=== PATIENT | female | born 1940 | race Caucasian/White ===

== ENCOUNTER 2022-05-15 07:24 | Day surgery (SDC) | payer MEDICARE, MEDICAID ==
[~2022-05-15] VITALS: Ht 156.2 cm; Wt 79.4 kg
[~2022-05-15 07:24] MED LIST: AMLO1TAB24 PO; CLOP75TA2 PO; FURO20TA2 PO; HYDR-3911 PO; METO50TA7 PO; NS 1,000 ML IV ONE; PANT20TA6 PO; ROSU10TA6 PO
[2022-05-15] MEDS ORDERED: LISI20TA33 PO (07:53)
[2022-05-15] MEDS ORDERED: ECOT81TA5 PO (07:53)
[2022-05-15] MEDS ORDERED: SIMV20TA22 PO (07:53)
[2022-05-15] MEDS ORDERED: FLOM0.4C39 PO (07:53)
[2022-05-15] MEDS ORDERED: propofoL 200 MG/20 ML VIAL As Ordered ONE (08:37)
[2022-05-15 09:40] VITALS: BP 145/65
== END 2022-05-15 09:41 | disposition home or self-care (01) ==
LOC: M OPP 07:24
PROVIDERS: ATTEND Surgery
DX: D12.0 Benign neoplasm of cecum (principal); K64.0 First degree hemorrhoids; K57.30 Diverticulosis of large intestine without perforation or abscess without bleeding; R63.4 Abnormal weight loss; Z86.010 Personal history of colon polyps; K29.70 Gastritis, unspecified, without bleeding; I10 Essential (primary) hypertension; E78.00 Pure hypercholesterolemia, unspecified; N18.30 Chronic kidney disease, stage 3 unspecified; Z79.02 Long term (current) use of antithrombotics/antiplatelets; Z79.82 Long term (current) use of aspirin; Z79.899 Other long term (current) drug therapy; Z95.5 Presence of coronary angioplasty implant and graft; Z86.73 Personal history of transient ischemic attack (TIA), and cerebral infarction without residual deficits; F17.200 Nicotine dependence, unspecified, uncomplicated

== ENCOUNTER → 2022-07-11 | Outpatient (CLI) | payer MEDICARE, MEDICAID ==
[~2022-07-11] MED LIST changes: +ECOT81TA5 PO; +FLOM0.4C39 PO; +LISI20TA33 PO; -NS 1,000 ML IV ONE; +SIMV20TA22 PO
== END ==
LOC: M RAD 10:53
PROVIDERS: ATTEND Podiatrist Foot & Ankle Surgery
DX: I70.203 Unspecified atherosclerosis of native arteries of extremities, bilateral legs (principal)

== ENCOUNTER → 2022-07-23 | Outpatient (POV) | payer MEDICARE, MEDICAID ==
[~2022-07-23] VITALS: Ht 154.9 cm; Wt 84.0 kg
[2022-07-23 09:30] VITALS: BP 189/79; O2SAT 98
== END ==
LOC: M IRPOV 09:15
PROVIDERS: ATTEND Radiology Diagnostic Radiology
DX: M79.661 Pain in right lower leg (principal); M79.662 Pain in left lower leg; I25.10 Atherosclerotic heart disease of native coronary artery without angina pectoris; I10 Essential (primary) hypertension; E78.5 Hyperlipidemia, unspecified; Z95.5 Presence of coronary angioplasty implant and graft; Z79.82 Long term (current) use of aspirin; Z87.891 Personal history of nicotine dependence

== ENCOUNTER 2022-07-31 12:24 | Observation (INO) | payer MEDICARE, MEDICAID ==
[~2022-07-31] VITALS: Ht 154.9 cm; Wt 79.6 kg
[2022-07-31] MEDS ORDERED: NS 1,000 ML IV SCH (13:05)
[2022-07-31 13:57] LABS: BASO # 0.1 10^3/uL (0.0-0.2); BASO % 0.4 % (0.0-1.0); EOS % 0.3 % (0.0-3.0); HEMATOCRIT 46.2 % (36.0-47.0); HEMOGLOBIN 15.7 g/dl (12.0-15.5); LYMPH # 2.1 10^3/uL (1.5-5.0); LYMPH % 15.9 % (24.0-44.0); MEAN CORPUSCULAR HEMOGLOBIN 31.9 pg (27.0-33.0); MEAN CORPUSCULAR VOLUME 93.9 fl (80.0-96.0); MONO % 7.3 % (2.0-8.0); NEUTROPHILS # 9.8 10^3/uL (1.5-8.5); NEUTROPHILS % 75.7 % (36.0-66.0); PLATELET COUNT, AUTOMATED 216 10^3/uL (150-450); RED BLOOD COUNT 4.92 10^6/uL (4.00-5.40)
[2022-07-31 14:24] LABS: ALBUMIN 3.2 G/DL (3.2-5.2); ALKALINE PHOSPHATASE 124 U/L (46-116); ALT/SGPT 11 U/L (7.0-40); AST/SGOT 32 U/L (<34); BILIRUBIN,DIRECT < 0.1 MG/DL (<0.4); BILIRUBIN,TOTAL 0.3 MG/DL (0.3-1.2); BLOOD UREA NITROGEN 36 MG/DL (9-23); CALCIUM LEVEL 8.8 MG/DL (8.3-10.6); CARBON DIOXIDE LEVEL 15 MMOL/L (20-31); CHLORIDE LEVEL 107 MMOL/L (98-107); CREATININE FOR GFR 2.17 MG/DL (0.55-1.30); GLOMERULAR FILTRATION RATE 23.1 (>32); GLUCOSE, FASTING 97 MG/DL (74-106); LIPASE 23 U/L (12-53); POTASSIUM SERUM 4.1 MMOL/L (3.5-5.1); SODIUM LEVEL 134 MMOL/L (136-145); TOTAL PROTEIN 6.5 G/DL (5.7-8.2)
[2022-07-31 15:25] LABS: OSMOLALITY SERUM 284 MOSM/KG (280-301)
[2022-07-31] MEDS ORDERED: PRES10CA2 PO (15:35)
[2022-07-31] MEDS ORDERED: MAGN250T11 PO (15:35)
[2022-07-31] MEDS ORDERED: XALA0.007 OU (15:35)
[2022-07-31] MEDS ORDERED: HOME MED LIST COMPLETE! XX SCH (15:35)
[2022-07-31 15:37] LABS: MAGNESIUM LEVEL 1.6 MG/DL (1.8-2.4)
[2022-07-31 15:39] LABS: CPK CREATINE PHOSPHOKINASE 54 U/L (34-145); URIC ACID 13.3 MG/DL (3.1-7.8)
[2022-07-31] MEDS ORDERED: MAG SULF 1GM/100ML (MAG RUN) 1 GM in IV 1 EA IV ONE (16:40)
[2022-07-31 17:45] VITALS: BP 175/76; O2SAT 94
[2022-07-31] MEDS: LOPERAMIDE 2 MG CAPLET PO PRN (17:51)
[2022-07-31] MEDS: NS 1,000 ML IV SCH (18:10)
[2022-07-31] MEDS ORDERED: OCTREOTIDE ACETATE 100MCG/ML VIAL **IV ADMINISTRATION ONLY IV SCH (20:00)
[2022-07-31 20:26] VITALS: BP 128/59; TEMP 97.5; O2SAT 93
[2022-07-31] MEDS: LATANOPROST 0.005% OPHTH SOLN 2.5 ML OU SCH (20:30)
[2022-07-31] MEDS: metroNIDAZOLE 500 MG in IV 1 EA IV SCH (20:30)
[2022-07-31] MEDS: CIPROFLOXACIN 200 MG in IV 1 EA IV SCH (21:32)
[2022-08-01] MEDS: metroNIDAZOLE 500 MG in IV 1 EA IV SCH ×3 (04:28→20:00)
[2022-08-01] MEDS: NS 1,000 ML IV SCH ×2 (04:28→20:00)
[2022-08-01 07:08] VITALS: BP 134/61; TEMP 97.5; O2SAT 94
[2022-08-01] MEDS: ROSUVASTATIN 10 MG TAB (CRESTOR) PO SCH (09:05)
[2022-08-01] MEDS: ASPIRIN 81MG ENTERIC TABLET PO SCH (09:05)
[2022-08-01] MEDS: CLOPIDOGREL 75 MG TAB PO SCH (09:05)
[2022-08-01] MEDS: CIPROFLOXACIN 200 MG in IV 1 EA IV SCH (09:06)
[2022-08-01 09:11] LABS: BASO % 0.4 % (0.0-1.0); EOS # 0.1 10^3/uL (0.0-0.5); EOS % 0.7 % (0.0-3.0); HEMATOCRIT 39.9 % (36.0-47.0); LYMPH # 1.7 10^3/uL (1.5-5.0); LYMPH % 16.4 % (24.0-44.0); MEAN CORPUSCULAR HEMOGLOBIN 31.8 pg (27.0-33.0); MEAN CORPUSCULAR HGB CONC 33.6 g/dl (32.0-36.5); MEAN CORPUSCULAR VOLUME 94.5 fl (80.0-96.0); MONO # 0.8 10^3/uL (0.0-0.8); MONO % 7.6 % (2.0-8.0); NEUTROPHILS # 7.7 10^3/uL (1.5-8.5); NEUTROPHILS % 74.4 % (36.0-66.0); PLATELET COUNT, AUTOMATED 182 10^3/uL (150-450); RED BLOOD COUNT 4.22 10^6/uL (4.00-5.40); WHITE BLOOD COUNT 10.4 10^3/uL (4.0-10.0)
[2022-08-01 09:19] LABS: HEMOGLOBIN 13.4 g/dl (12.0-15.5)
[2022-08-01 09:36] LABS: CALCIUM LEVEL 7.7 MG/DL (8.3-10.6); CREATININE FOR GFR 2.1 MG/DL (0.55-1.30); POTASSIUM SERUM 3.4 MMOL/L (3.5-5.1)
[2022-08-01] MEDS ORDERED: diphenhydrAMINE 25MG CAP PO ONE (10:40)
[2022-08-01] MEDS ORDERED: POTASSIUM CHLORIDE 10MEQ SR TABLET PO ONE (10:40)
[2022-08-01 14:00] VITALS: BP 124/80; TEMP 97.2; O2SAT 96
[2022-08-01] MEDS: LOPERAMIDE 2 MG CAPLET PO PRN ×3 (16:27→22:29)
[2022-08-01] MEDS: CEFDINIR 300 MG CAP (OMNICEF) PO SCH (17:22)
[2022-08-01] MEDS ORDERED: ONDANSETRON 4MG 2ML VIAL IV PRN (19:00)
[2022-08-01] MEDS ORDERED: PANTOPRAZOLE 40MG VIAL IV ONE (19:00)
[2022-08-01] MEDS: LOPERAMIDE 2 MG CAPLET PO SCH (20:00)
[2022-08-01] MEDS: LATANOPROST 0.005% OPHTH SOLN 2.5 ML OU SCH (20:01)
[2022-08-01 20:57] VITALS: BP_SYST 82; TEMP 98.2; O2SAT 97
[2022-08-01] MEDS ORDERED: LOPERAMIDE 2 MG CAPLET PO SCH (21:00)
[2022-08-01 21:34] LABS: URINE TOTAL PROTEIN 94.4 MG/DL (0-14)
[2022-08-02] MEDS: LOPERAMIDE 2 MG CAPLET PO PRN (01:32)
[2022-08-02] MEDS: metroNIDAZOLE 500 MG in IV 1 EA IV SCH (04:41)
[2022-08-02 06:38] LABS: BASO % 0.5 % (0.0-1.0); EOS # 0.1 10^3/uL (0.0-0.5); EOS % 0.9 % (0.0-3.0); HEMATOCRIT 38.9 % (36.0-47.0); HEMOGLOBIN 12.9 g/dl (12.0-15.5); LYMPH # 2.1 10^3/uL (1.5-5.0); LYMPH % 26.1 % (24.0-44.0); MEAN CORPUSCULAR HEMOGLOBIN 31.2 pg (27.0-33.0); MEAN CORPUSCULAR HGB CONC 33.2 g/dl (32.0-36.5); MONO # 0.5 10^3/uL (0.0-0.8); MONO % 6.5 % (2.0-8.0); NEUTROPHILS # 5.2 10^3/uL (1.5-8.5); NEUTROPHILS % 65.4 % (36.0-66.0); PLATELET COUNT, AUTOMATED 186 10^3/uL (150-450); RED BLOOD COUNT 4.14 10^6/uL (4.00-5.40); WHITE BLOOD COUNT 7.9 10^3/uL (4.0-10.0)
[2022-08-02 06:54] VITALS: BP 128/72; TEMP 97.3; O2SAT 97
[2022-08-02 07:12] LABS: CALCIUM LEVEL 8.7 MG/DL (8.3-10.6); CREATININE FOR GFR 1.78 MG/DL (0.55-1.30); POTASSIUM SERUM 3.2 MMOL/L (3.5-5.1)
[2022-08-02] MEDS ORDERED: PANTOPRAZOLE 40MG VIAL IV SCH (09:00)
[2022-08-02] MEDS ORDERED: METAMUCIL (PSYLLIUM) PACKET PO SCH (09:00)
[2022-08-02] MEDS: ASPIRIN 81MG ENTERIC TABLET PO SCH (09:25)
[2022-08-02] MEDS: CEFDINIR 300 MG CAP (OMNICEF) PO SCH (09:25)
[2022-08-02] MEDS: LOPERAMIDE 2 MG CAPLET PO SCH (09:25)
[2022-08-02] MEDS: ROSUVASTATIN 10 MG TAB (CRESTOR) PO SCH (09:25)
[2022-08-02] MEDS: KCL 10MEQ/100ML SWI (KRUN) 10 MEQ in IV 1 EA IV SCH ×2 (09:26→11:23)
[2022-08-02] MEDS: CLOPIDOGREL 75 MG TAB PO SCH (09:26)
[2022-08-02] MEDS ORDERED: METR-265 PO (11:38)
[2022-08-02] MEDS ORDERED: META1POW PO (11:38)
[2022-08-02] MEDS ORDERED: CEFD300CAP PO (11:38)
[2022-08-02] MEDS ORDERED: LOPE2CA PO (11:38)
[2022-08-02] MEDS ORDERED: SODI650T PO (12:19)
[2022-08-02] MEDS ORDERED: metroNIDAZOLE (FLAGYL) 500MG TABLET PO SCH (14:00)
[2022-08-06 23:07] LABS: 5HIAA 24HR URINE 3.9 mg/24 hr (0.0-14.9); 5HIAA TOTAL URINE 7.8 mg/L (Undefined)
[2022-08-07 15:08] LABS: VASOACTIVE INTESTINAL PEPTIDE 38.4 pg/mL (0.0-58.8)
== END 2022-08-02 15:15 | disposition home health service (06) ==
LOC: M ED 12:24 → M ED INP 15:56 → INTOOBSV 15:56 → M MS5PR 17:40
PROVIDERS: ADMIT Internal Medicine Nephrology; ATTEND Internal Medicine Nephrology
DX: N17.9 Acute kidney failure, unspecified (principal); E46 Unspecified protein-calorie malnutrition; K57.32 Diverticulitis of large intestine without perforation or abscess without bleeding; E87.20 Acidosis, unspecified; R19.7 Diarrhea, unspecified; I12.9 Hypertensive chronic kidney disease with stage 1 through stage 4 chronic kidney disease, or unspecified chronic kidney disease; E87.6 Hypokalemia; E78.5 Hyperlipidemia, unspecified; E79.0 Hyperuricemia without signs of inflammatory arthritis and tophaceous disease; T36.8X5A Adverse effect of other systemic antibiotics, initial encounter; I25.10 Atherosclerotic heart disease of native coronary artery without angina pectoris; N18.30 Chronic kidney disease, stage 3 unspecified; I73.9 Peripheral vascular disease, unspecified; E83.42 Hypomagnesemia; E86.0 Dehydration; I25.2 Old myocardial infarction; Z95.2 Presence of prosthetic heart valve; Z90.79 Acquired absence of other genital organ(s); Z90.49 Acquired absence of other specified parts of digestive tract; Z79.82 Long term (current) use of aspirin; Z79.899 Other long term (current) drug therapy; Z20.822 Contact with and (suspected) exposure to COVID-19; Z95.5 Presence of coronary angioplasty implant and graft; Z86.73 Personal history of transient ischemic attack (TIA), and cerebral infarction without residual deficits; Z95.828 Presence of other vascular implants and grafts
CPT/HCPCS: 36415; 74176; 80048; 80076; 81050; 82330; 82438; 82550; 82941; 83497; 83605; 83630; 83690; 83735; 83930; 84156; 84302; 84550; 84586; 84999; 85025; 86140; 87207; 87507; 87635; 93005; 93041; 96361; 96365; 96366; 96367; 96375; 96376; 99285; C9113; G0378; J0744; J3475; J3490

== ENCOUNTER → 2024-09-21 | Outpatient (REF) | payer MEDICARE, MEDICAID, OTHER ==
[~2024-09-21] MED LIST changes: +CEFD300CAP PO; -FLOM0.4C39 PO; -HYDR-3911 PO; +HYDR50TA46 PO; +LOPE2CA PO; +MAGN250T11 PO; +META1POW PO; +METR-265 PO; +PRES10CA2 PO; -ROSU10TA6 PO; +ROSU10TA61 PO; +SODI650T PO; +TAMS-18 PO; +XALA0.007 OU
== END ==
LOC: M LAB REF 16:41
PROVIDERS: ATTEND Nurse Practitioner Family
DX: N39.0 Urinary tract infection, site not specified (principal)